=== PATIENT | male | born 1955 | race Caucasian/White ===

== ENCOUNTER 2022-12-22 09:47 | Day surgery (SDC) | payer OTHER, SELFPAY ==
--- NOTE | 2022-12-22 07:31 | W.ANESPRE ---
General Info Date of Service Date Performed: 12/22/22 Height: 6 ft 1 in Weight: 104.326 kg Body Mass Index (BMI): 30.3 Surgical Procedure: Operation Date: 12/22/22 13:40 Proposed Procedure Side Surgeon p Cataract Extraction with IOL Implant Left Vamsi Mills MD Meds Allergies and Home Medications Allergies Allergy/AdvReac Type Severity Reaction Status Date / Time terazosin AdvReac Contraindic Unverified 12/22/22 10:37 ated Home Medication Medication Instructions Recorded acyclovir 800 mg tablet 800 mg PO TID 12/20/22 amoxicillin 500 mg tablet 2,000 mg PO DIRECTED 12/20/22 atorvastatin 40 mg tablet 40 mg PO DAILY 12/20/22 cholecalciferol (vitamin D3) 25 1,000 unit PO DAILY 12/20/22 mcg (1,000 unit) capsule (Vitamin D3) dextran 70-hypromellose eye drops 1 drp ophthalmic (eye) QID 12/20/22 in a dropperette (Artificial Tears (PF) drops in a dropperette) gabapentin 300 mg tablet 300 mg PO BID 12/20/22 lisinopril 5 mg tablet 5 mg PO DAILY 12/20/22 sumatriptan succinate 50 mg tablet 50 mg PO DIRECTED 12/20/22 warfarin 5 mg tablet 5 mg PO DAILY 12/20/22 Current Visit Medications: Current Medications Generic Name Dose Route Start Last Admin Trade Name Freq PRN Reason Stop Dose Admin Acetaminophen 1,000 mg 12/22/22 06:00 Acetaminophen 500 Mg Tab PO 01/21/23 05:59 Q4H PRN PRN Balanced Salt Solution 500 ml 12/22/22 06:00 Balanced Salt Soln.-Plus 500 Ml Bag OP 01/21/23 05:59 DIRECTED CRISTOFER Miscellaneous Medication 0 ml 12/22/22 06:00 Prednisolone 1%, Moxifloxacin 0.5%, Nepafenac 0.1% 5ml Btl OS 01/21/23 05:59 DIRECTED CRISTOFER Miscellaneous Medication 0 ml 12/22/22 06:00 Tropicam./Phenyleph. (1/2.5%) 5 Ml Btl OS 01/21/23 05:59 DIRECTED CRISTOFER Tetracaine HCl 0 ml 12/22/22 06:00 Tetracaine 0.5% 4 Ml Btl OS 01/21/23 05:59 DIRECTED [facility] Active Problems Active Problems: Problem Status Onset Code Cortical age-related cataract, left eye H25.012 Posterior subcapsular age-related cataract of left eye H25.042 Nuclear age-related cataract, left eye H25.12 Medical History Medical History (Updated 12/21/22 @ 19:19 by Vamsi Mills MD) Afib CHF (congestive heart failure) Per pt. states CHF and Afib no longer an issues since he his mitral valves replaced 2000 Diabetes mellitus DVT (deep venous thrombosis) Factor 5 Leiden mutation, heterozygous HTN (hypertension) Mitral valve regurgitation Proteinuria Pulmonary HTN Surgical History Surgical History (Updated 12/20/22 @ 11:54 by Waylon Grant) S/P MVR (mitral valve replacement) 2000 Tobacco Smoking/Tobacco Use Status: Never Alcohol Alcohol Intake: current Alcohol intake frequency: a few times a month Substance Use Substance use: Never Substance use type: does not use Vital Signs and Lab Results Vital Signs Most Recent Vital Signs in EMR: Temp Pulse Resp BP Pulse Ox 36.7 C 66 18 166/117 H 97 12/22/22 10:30 12/22/22 10:30 12/22/22 10:30 12/22/22 10:30 12/22/22 10:30 Lab Results Blood Type / Crossmatch: No Data to Display Complete Blood Count: No Data to Display Complete Metabolic Panel: No Data to Display Liver Function Panel: No Data to Display Coagulation Panel: No Data to Display Cardiac Panel: No Data to Display Arterial Blood Gas: No Data to Display Venous Blood Gas: No Data to Display Pancreas Panel: No Data to Display Thyroid Panel: No Data to Display Infectious Disease: No Data to Display Blood Cultures: No Data to Display Toxicology Panel: No Data to Display Anesthesia Assessment and Plan Anesthesia History Personal History: No History of Anesthesia Complications Family History: No Family History of Anesthesia Complications Exercise Tolerance Exercise Tolerance: Metabolic Equivalents>4 Cardiac & Pulmonary Exam Cardiac Exam: Normal S1/S2 Heart Sounds Pulmonary Exam: Clear Bilateral Breath Sounds Implantable Cardiac Device Does patient have a Pacemaker or an ICD?: No Airway Exam Known Difficult Airway: No Mallampati Class: 3 Mouth Opening: Normal (> 3cm) Thyromental Distance: Greater than 3 cm Neck Range of Motion: Full ROM Neck Circumference: Normal Teeth Condition: Normal Dentition ASA Classification ASA Score: ASA 3 Emergency Case?: No NPO Status NPO Status: NPO Clears >2 hours, Solids >8 hours Anesthesia Plan Resuscitation Status: Full Code Anesthesia Technique: MAC Anesthesia Airway Planned: Natural Airway Monitors Used: Standard Monitors Preoperative Comments:: 67 yo male for cataract removal. Discussed sedation vs no sedation, would like to proceed without MKO. Discussed that an IV can be placed and that we can provide him with sedation if needed. Sig PMHx: afib (warfarin), chf, MVR (2000), factor V leiden (hetero), never smoker, occ EtOH.
[2022-12-22 10:30] VITALS: BP 166/117; PULSE 66; RESP 18; TEMP 36.7; O2SAT 97
[2022-12-22] MEDS: Tropicam./Phenyleph. (1/2.5%) 5 ML BTL OS ×3 (10:42→10:52)
[2022-12-22 10:46] VITALS: BMI 30.3
[2022-12-22] MEDS: Tetracaine 0.5% 4 ML BTL OS (11:48)
[2022-12-22] MEDS: Povidone-Iodine Ophth 30 ML BTL (11:48)
[2022-12-22] MEDS: Balanced Salt Soln.-PLUS 500 ML BAG OP (11:52)
[2022-12-22] MEDS: Duovisc Viscoelastic System EACH 1 EACH (11:52)
[2022-12-22] MEDS: Phenylephrine/Lidocaine (15/10) MG/ML 1 ML VIAL (11:52)
[2022-12-22] MEDS: Lidocaine 1% Pres-Free 5 ML VIAL (11:54)
[2022-12-22] MEDS: Trypan Blue 0.06% 0.5 ML SYR (11:56)
[2022-12-22 12:16] VITALS: BP 153/102; PULSE 57; RESP 18; TEMP 36.3; O2SAT 99
--- NOTE | 2022-12-22 12:16 | W.PM.DSUDISC ---
Date of service: 12/22/22 Time of Service: 12:17 Discharge Plan Disposition Patient Disposition: Home Discharge Details Attending Provider: Vamsi Mills Home Meds and New Rx's Prescriptions: No Action atorvastatin 40 mg Tablet 40 mg PO DAILY sumatriptan succinate 50 mg Tablet 50 mg PO DIRECTED amoxicillin 500 mg Tablet 2,000 mg PO DIRECTED Rx Instructions: BEFORE DENTAL CLEANING PROCEDURES DIRECTED acyclovir 800 mg Tablet 800 mg PO TID warfarin 5 mg Tablet 5 mg PO DAILY lisinopril 5 mg Tablet 5 mg PO DAILY cholecalciferol (vitamin D3) [Vitamin D3] 25 mcg (1,000 unit) Capsule 1,000 unit PO DAILY Artificial Tears (PF) Dropperette 1 drp ophthalmic (eye) QID gabapentin 300 mg Tablet 300 mg PO BID Discharge Instructions Stand Alone Forms: Post-op Topical Cataract, Niya Ganey (DSU) Discharge Orders Discharge Orders: Discharge Order (Routine); Ordered 12/22/22 Ordered By: Vamsi Mills DS: Diagnosis Discharge Diagnosis (1) Cortical age-related cataract, left eye: Status: Resolved (2) Posterior subcapsular age-related cataract of left eye: Status: Resolved (3) Nuclear age-related cataract, left eye: Status: Resolved
--- NOTE | 2022-12-22 12:17 | W.PM.OP ---
Date of service: 12/22/22 Time of Service: 12:17 Operative Note Operative Note DATE OF PROCEDURE: 12/22/22 PRE-OP DIAGNOSIS: Nuclear/cortical/posterior subcapsular cataract, left eye POST-OP DIAGNOSIS: same PROCEDURE: Cataract extraction using phacoemulsification with intraocular lens implant, left eye SURGEON: Vamsi Mills ANESTHESIA TYPE: Local By Surgeon and MAC Refer to Anesthesia Record PATHOLOGY: none sent COMPLICATIONS: None Patient was transported to: same day Patient's condition: stable Implants: Rambo and Rambo Tecnis Eyhance [id number] Indications: Progressive decreased vision due to cataract, left eye Procedure Description: CATARACT SURGERY OPERATIVE REPORT PREOPERATIVE DIAGNOSIS: 1. Nuclear/cortical/posterior subcapsular cataract, left eye POSTOPERATIVE DIAGNOSIS: Same OPERATION: 1. Cataract extraction using phacoemulsification with posterior chamber intraocular lens implant, left eye. IOL: IOL Awake Overnight Monitor/Model: Rambo & Rambo Tecnis Eyhance DIB00 IOL Power: + 12.0 diopters IOL Serial Number: [id number] Optic Diameter: 6.0 mm Haptic/Overall Diameter: 13.0 mm PHACO INFO: Eric Shnergleurion Vision System with OZil and Active Fluidics Cumulative Dispersed Energy (CDE): 8.34 seconds SURGEON: Vamsi Mills MD, BRENNON ANESTHESIA: Monitored A [facility] (MAC), with local sub-tenon's anesthetic infiltration COMPLICATIONS: None SPECIMENS: None INDICATIONS FOR PROCEDURE: The patient is a 67-year-old male with history of diminished visual acuity in his left eye secondary to the development of significant nuclear/cortical/posterior subcapsular cataract. He has a history of myopia, but does not wish to remain myopic postoperatively. The option of cataract surgery was offered to the patient and he wished to proceed. See office notes for detailed information. PROCEDURE: The correct surgical eye was identified and marked as the left eye and the pupil was dilated in the preoperative area using mydriatics and cycloplegics. The dilated pupil size was 8.0 mm. The patient elected to proceed without oral sedation. The patient was brought to the operating room where cardiopulmonary monitoring was instituted and surgical time-out was performed, confirming the correct operative eye and IOL power. Topical anesthesia was administered and ophthalmic povidone-iodine 5% was instilled into the conjunctival fornices. The toni-ocular area was prepped with Betadine 10% solution and draped in the usual sterile fashion for intraocular surgery, including an aperture drape. A Tegaderm transparent film dressing was cut in half and used to cover the lashes and lid margins. Care was taken to sequester the lashes and lid margins under the Tegaderm dressing. A lid speculum was placed between the lids of the operative eye and the Eric LuxOR Revalia operating microscope was maneuvered into position. Ejnny scissors were then used to make a conjunctival buttonhole approximately 6mm posterior to the limbus in the inferonasal quadrant. Blunt dissection was carried out to expose bare sclera, and a blunt-tipped sub-tenon?s anesthesia cannula was introduced and passed posteriorly along the globe where non-preserved plain lidocaine was injected into posterior sub-Tenon?s space. A sideport knife was used to make a paracentesis port. VisionBlue was injected into the anterior chamber and allowed to sit for 20 seconds. Intraocular phenylephrine/lidocaine was injected into the anterior chamber.. The anterior chamber was filled with viscoelastic. A keratome knife was used to construct a 2-plane near-clear corneal tunnel extending 2.0mm into clear cornea. A flap was raised on the anterior capsule and capsulorhexis forceps were used to complete a continuous curvilinear capsulorhexis of 5.5 mm. Balanced salt solution was then used to perform cortical cleaving hydrodissection and nuclear hydrodelineation until the lens could be freely rotated within the capsular bag. The lens nucleus was then disassembled and removed within the capsular bag and iris plane using phacoemulsification. Residual cortical material was removed using the irrigation/aspiration handpiece. The posterior capsule was carefully polished to remove as much residual lens epithelial cells as safely possible. The capsular bag was then inflated and the anterior chamber deepened with viscoelastic. The lens implant described above was inserted into the capsular bag using the Rambo and Rambo Simplicity pre-loaded injector. A Kuglen hook was used to dial the IOL into position. Residual viscoelastic was then removed first from posterior to the IOL, then from the anterior chamber using the I/A handpiece. The lens implant was noted to center nicely within the capsular bag. The incisions were stromally hydrated, and the anterior chamber was reformed using BSS. Then 0.5cc of moxifloxacin 1.0mg/ml were injected into the capsular bag and anterior chamber. The incisions were checked with a Weck spear and found to be secure. Several drops of ophthalmic povidone-iodine 5% were then applied to the eye followed by two drops of Imprimis combination prednisolone/moxifloxacin/nepafenac solution. The drapes were removed and a clear plastic protective eye shield was placed over the eye. The patient was then returned to Same Day Surgery in stable condition.
--- NOTE | 2022-12-22 12:39 | W.ANESPOSTOP ---
Postoperative Evaluation Date, Time and Location Date Performed: 12/22/22 Time Performed: 12:17 Patient Location: Day Surgery Unit Vital Signs Most Recent Imported Vital Signs: Most Recent Vital Signs Temp Pulse Resp BP Pulse Ox 36.3 C L 57 L 18 153/102 H 99 12/22/22 12:16 12/22/22 12:16 12/22/22 12:16 12/22/22 12:16 12/22/22 12:16 Pain Score Most Recent Pain Score: Most Recent Pain Score Pain Level 0 12/22/22 12:16 Assessment Mental Status: Awake (Alert & Oriented to Patient Baseline) Airway and Respiratory Function: Patent airway with normal (patient baseline) respiratory exam Cardiovascular Function: Hemodynamically Stable Hydration Status: Adequately Hydrated Nausea & Vomiting: No Nausea or Vomiting Pain: Pt. Denies Any Pain Peripheral Nerve Block: Patient did not receive a nerve block
== END 2022-12-22 13:12 | disposition home or self-care (01) ==
PROVIDERS: Visit Provider Ophthalmology
PROC: (CPT 66984; principal; 2022-12-22 13:30)
DX: H25.012 Cortical age-related cataract, left eye (principal); H25.042 Posterior subcapsular polar age-related cataract, left eye; H25.12 Age-related nuclear cataract, left eye; I10 Essential (primary) hypertension
CPT/HCPCS: 66984; V2632

== ENCOUNTER 2023-01-05 11:07 | Day surgery (SDC) | payer OTHER, SELFPAY ==
[2023-01-05 11:18] VITALS: BP 134/102; PULSE 69; RESP 18; TEMP 36.5; O2SAT 98
[2023-01-05] MEDS: Tropicam./Phenyleph. (1/2.5%) 5 ML BTL OD ×3 (11:27→11:45)
--- NOTE | 2023-01-05 11:47 | W.ANESPRE ---
General Info Date of Service Date Performed: 01/05/23 Height: 6 ft 1 in Weight: 103.3 kg Body Mass Index (BMI): 30.0 Surgical Procedure: Operation Date: 01/05/23 14:25 Proposed Procedure Side Surgeon p Cataract Extraction with IOL Implant Right Vamsi Mills MD Meds Allergies and Home Medications Allergies Allergy/AdvReac Type Severity Reaction Status Date / Time terazosin AdvReac Contraindic Unverified 01/05/23 11:33 ated Home Medication Medication Instructions Recorded acyclovir 800 mg tablet 800 mg PO TID 12/20/22 amoxicillin 500 mg tablet 2,000 mg PO DIRECTED 12/20/22 atorvastatin 40 mg tablet 40 mg PO HS 12/20/22 cholecalciferol (vitamin D3) 25 1,000 unit PO DAILY 12/20/22 mcg (1,000 unit) capsule (Vitamin D3) dextran 70-hypromellose eye drops 1 drp ophthalmic (eye) QID 12/20/22 in a dropperette (Artificial Tears (PF) drops in a dropperette) gabapentin 300 mg tablet 300 mg PO BID 12/20/22 lisinopril 5 mg tablet 5 mg PO HS 12/20/22 sumatriptan succinate 50 mg tablet 50 mg PO DIRECTED 12/20/22 warfarin 5 mg tablet 5 mg PO HS 12/20/22 coenzyme Q10 100 mg capsule 100 mg PO DAILY 01/05/23 Current Visit Medications: Current Medications Generic Name Dose Route Start Last Admin Trade Name Freq PRN Reason Stop Dose Admin Acetaminophen 1,000 mg 01/05/23 06:00 Acetaminophen 500 Mg Tab PO 02/04/23 05:59 Q4H PRN PRN Balanced Salt Solution 500 ml 01/05/23 06:00 Balanced Salt Soln.-Plus 500 Ml Bag OP 02/04/23 05:59 DIRECTED CRISTOFER Miscellaneous Medication 0 ml 01/05/23 06:00 Prednisolone 1%, Moxifloxacin 0.5%, Nepafenac 0.1% 5ml Btl OD 02/04/23 05:59 DIRECTED CRISTOFER Miscellaneous Medication 0 ml 01/05/23 06:00 01/05/23 11:45 Tropicam./Phenyleph. (1/2.5%) 5 Ml Btl OD 02/04/23 05:59 1 drp DIRECTED CRISTOFER Administration Tetracaine HCl 0 ml 01/05/23 06:00 Tetracaine 0.5% 4 Ml Btl OD 02/04/23 05:59 DIRECTED CRISTOFER PFSH Active Problems Active Problems: Problem Status Onset Code Nuclear age-related cataract, left eye H25.12 Posterior subcapsular age-related cataract of left eye H25.042 Cortical age-related cataract, left eye H25.012 Nuclear age-related cataract, right eye H25.11 Cortical age-related cataract, right eye H25.011 Posterior subcapsular age-related cataract, right eye H25.041 Medical History Medical History (Updated 01/05/23 @ 11:36 by Letha Negrete RN) Afib CHF (congestive heart failure) Per pt. states CHF and Afib no longer an issues since he his mitral valves replaced 2000 Diabetes mellitus 01/05/23 pt denies he has diabetes mellitus DVT (deep venous thrombosis) Factor 5 Leiden mutation, heterozygous HTN (hypertension) Hx of hiatal hernia Mitral valve regurgitation Proteinuria Pulmonary HTN Surgical History Surgical History S/P MVR (mitral valve replacement) 2000 Tobacco Smoking/Tobacco Use Status: Never Alcohol Alcohol Intake: current Alcohol intake frequency: a few times a month Substance Use Substance use: Never Substance use type: does not use Vital Signs and Lab Results Vital Signs Most Recent Vital Signs in EMR: Most Recent Vital Signs Temp Pulse Resp BP Pulse Ox 36.5 C 69 18 134/102 H 98 01/05/23 11:18 01/05/23 11:18 01/05/23 11:18 01/05/23 11:18 01/05/23 11:18 Lab Results Blood Type / Crossmatch: No Data to Display Complete Blood Count: No Data to Display Complete Metabolic Panel: No Data to Display Liver Function Panel: No Data to Display Coagulation Panel: No Data to Display Cardiac Panel: No Data to Display Arterial Blood Gas: No Data to Display Venous Blood Gas: No Data to Display Pancreas Panel: No Data to Display Thyroid Panel: No Data to Display Infectious Disease: No Data to Display Blood Cultures: No Data to Display Toxicology Panel: No Data to Display Anesthesia Assessment and Plan Anesthesia History Personal History: No History of Anesthesia Complications Family History: No Family History of Anesthesia Complications Exercise Tolerance Exercise Tolerance: Metabolic Equivalents>4 Cardiac & Pulmonary Exam Cardiac Exam: Normal S1/S2 Heart Sounds Pulmonary Exam: Clear Bilateral Breath Sounds Implantable Cardiac Device Does patient have a Pacemaker or an ICD?: No Airway Exam Known Difficult Airway: No Mallampati Class: 3 Mouth Opening: Normal (> 3cm) Thyromental Distance: Greater than 3 cm Neck Range of Motion: Full ROM Neck Circumference: Normal Teeth Condition: Normal Dentition ASA Classification ASA Score: ASA 2 Emergency Case?: No NPO Status NPO Status: NPO Clears >2 hours, Solids >8 hours Anesthesia Plan Resuscitation Status: Full Code Anesthesia Technique: MAC Anesthesia Airway Planned: Natural Airway Monitors Used: Standard Monitors
[2023-01-05] MEDS: Balanced Salt Soln.-PLUS 500 ML BAG OP (12:10)
[2023-01-05] MEDS: Tetracaine 0.5% 4 ML BTL OD (12:11)
[2023-01-05] MEDS: Duovisc Viscoelastic System EACH 1 EACH (12:12)
[2023-01-05] MEDS: Lidocaine 1% Pres-Free 5 ML VIAL (12:12)
[2023-01-05] MEDS: Povidone-Iodine Ophth 30 ML BTL (12:14)
[2023-01-05] MEDS: Phenylephrine/Lidocaine (15/10) MG/ML 1 ML VIAL (12:14)
[2023-01-05] MEDS: Trypan Blue 0.06% 0.5 ML SYR (12:15)
--- NOTE | 2023-01-05 12:34 | W.PM.DSUDISC ---
Date of service: 01/05/23 Time of Service: 12:34 Discharge Plan Disposition Patient Disposition: Home Discharge Details Attending Provider: Vamsi Mills Home Meds and New Rx's Prescriptions: No Action atorvastatin 40 mg Tablet 40 mg PO HS sumatriptan succinate 50 mg Tablet 50 mg PO DIRECTED amoxicillin 500 mg Tablet 2,000 mg PO DIRECTED Rx Instructions: BEFORE DENTAL CLEANING PROCEDURES DIRECTED acyclovir 800 mg Tablet 800 mg PO TID warfarin 5 mg Tablet 5 mg PO HS lisinopril 5 mg Tablet 5 mg PO HS cholecalciferol (vitamin D3) [Vitamin D3] 25 mcg (1,000 unit) Capsule 1,000 unit PO DAILY Artificial Tears (PF) Dropperette 1 drp ophthalmic (eye) QID gabapentin 300 mg Tablet 300 mg PO BID coenzyme Q10 100 mg Capsule 100 mg PO DAILY Discharge Instructions Stand Alone Forms: Post-op Topical Cataract, Niya Fontanezey (DSU) Discharge Orders Discharge Orders: Discharge Order (Routine); Ordered 01/05/23 Ordered By: Vamsi Mills DS: Diagnosis Discharge Diagnosis (1) Nuclear age-related cataract, right eye: Status: Resolved (2) Cortical age-related cataract, right eye: Status: Resolved (3) Posterior subcapsular age-related cataract, right eye: Status: Resolved
[2023-01-05 12:36] VITALS: BP 150/99; PULSE 63; RESP 20; TEMP 36.8; O2SAT 97
--- NOTE | 2023-01-05 12:36 | ROE_ITS ---
Date of service: 01/05/23 Time of Service: 12:36 Operative Note Operative Note DATE OF PROCEDURE: 01/05/23 PRE-OP DIAGNOSIS: Nuclear/cortical/posterior subcapsular cataract, right eye POST-OP DIAGNOSIS: same PROCEDURE: Cataract extraction using phacoemulsification with intraocular lens implant, right eye SURGEON: Vamsi Mills ANESTHESIA TYPE: Local By Surgeon and MAC Refer to Anesthesia Record ESTIMATED BLOOD LOSS: 0 PATHOLOGY: none sent COMPLICATIONS: None Patient was transported to: same day Patient's condition: stable Implants: Rambo & Rambo Tecnis Eyhance DIB00 Indications: Progressive visual loss due to cataract, right eye Procedure Description: CATARACT SURGERY OPERATIVE REPORT PREOPERATIVE DIAGNOSIS: 1. Nuclear/cortical/posterior subcapsular cataract, left eye POSTOPERATIVE DIAGNOSIS: Same OPERATION: 1. Cataract extraction using phacoemulsification with posterior chamber intraocular lens implant, right eye. IOL: IOL Burglar Alarm Installer/Model: Rambo & Rambo Tecnis Eyhance DIB00 IOL Power: + 11.5 diopters IOL Serial Number: [id number] Optic Diameter: 6.0mm Haptic/Overall Diameter: 13.0mm PHACO INFO: Eric AmigoCATurion Vision System with OZil and Active Fluidics Cumulative Dispersed Energy (CDE): 9.40 seconds SURGEON: Vamsi Mills MD, BRENNON ANESTHESIA: Monitored Anesthesia Care (MAC), with local sub-tenon's anesthetic infiltration COMPLICATIONS: None SPECIMENS: None INDICATIONS FOR PROCEDURE: The patient is a 67-year-old male with history of diminished visual acuity in both eyes secondary to the development of significant bilateral nuclear/cortical/posterior subcapsular cataract. He has already undergone cataract surgery in the left eye and is doing well postoperatively. He now presents for cataract surgery in the right eye. See office notes for detailed information. PROCEDURE: The correct surgical eye was identified and marked as the right eye and the pupil was dilated in the preoperative area using mydriatics and cycloplegics. The dilated pupil size was 6.5 mm. The patient elected to proceed without oral sedation. The patient was brought to the operating room where cardiopulmonary monitoring was instituted and surgical time-out was performed, confirming the correct operative eye and IOL power. Topical anesthesia was administered and ophthalmic povidone-iodine 5% was instilled into the conjunctival fornices. The toni-ocular area was prepped with Betadine 10% solution and draped in the usual sterile fashion for intraocular surgery, including an aperture drape. A Tegaderm transparent film dressing was cut in half and used to cover the lashes and lid margins. Care was taken to sequester the lashes and lid margins under the Tegaderm dressing. A lid speculum was placed between the lids of the operative eye and the Eric LuxOR Revalia operating microscope was maneuvered into position. Jenny scissors were then used to make a conjunctival buttonhole approximately 6mm posterior to the limbus in the inferonasal quadrant. Blunt dissection was carried out to expose bare sclera, and a blunt-tipped sub-tenon?s anesthesia cannula was introduced and passed posteriorly along the globe where non- preserved plain lidocaine was injected into posterior sub-Tenon?s space. A sideport knife was used to make a paracentesis port. VisionBlue was injected into the anterior chamber and allowed to sit for 20 seconds. Intraocular phenylephrine/lidocaine was injected into the anterior chamber. The anterior chamber was filled with viscoelastic. A keratome knife was used to construct a 2-plane clear corneal tunnel extending 2.0mm into clear cornea. A flap was raised on the anterior capsule and capsulorhexis forceps were used to complete a continuous curvilinear capsulorhexis of 5.0 mm. Balanced salt solution was then used to perform cortical cleaving hydrodissection and nuclear hydrodelineation until the lens could be freely rotated within the capsular bag. The lens nucleus was then disassembled and removed within the capsular bag and iris plane using phacoemulsification. Residual cortical material was removed using the I/A handpiece. The posterior capsule was carefully polished to remove as much residual lens epithelial cells as safely possible. The capsular bag was then inflated and the anterior chamber deepened with cohesive viscoelastic. The lens implant described above was inserted into the capsular bag using the Rambo and Evens Simplicity pre- loaded injector. A Kuglen hook was used to dial the IOL into position. Residual viscoelastic was then removed first from posterior to the IOL, then from the anterior chamber using the I/A handpiece. The lens implant was noted to center nicely within the capsular bag. The incisions were stromally hydrated, and the anterior chamber was reformed using BSS. Then 0.5cc of moxifloxacin 1.0mg/ml were injected into the capsular bag and anterior chamber. The incisions were checked with a Weck spear and found to be secure. Several drops of ophthalmic povidone-iodine 5% were then applied to the eye followed by two drops of Imprimis combination prednisolone/moxifloxacin/nepafenac solution. The drapes were removed and a clear plastic protective eye shield was placed over th e eye. The patient was then returned to Same Day Surgery in stable condition.
--- NOTE | 2023-01-05 12:46 | W.ANESPOSTOP ---
Postoperative Evaluation Date, Time and Location Date Performed: 01/05/23 Time Performed: 12:46 Patient Location: Day Surgery Unit Vital Signs Most Recent Imported Vital Signs: Most Recent Vital Signs Temp Pulse Resp BP Pulse Ox 36.8 C 63 20 150/99 H 97 01/05/23 12:36 01/05/23 12:36 01/05/23 12:36 01/05/23 12:36 01/05/23 12:36 Pain Score Most Recent Pain Score: Most Recent Pain Score Pain Level 0 01/05/23 12:36 Assessment Mental Status: Awake (Alert & Oriented to Patient Baseline) Airway and Respiratory Function: Patent airway with normal (patient baseline) respiratory exam Cardiovascular Function: Hemodynamically Stable Hydration Status: Adequately Hydrated Nausea & Vomiting: No Nausea or Vomiting Pain: Pt. Denies Any Pain Peripheral Nerve Block: Patient did not receive a nerve block
== END 2023-01-05 13:23 | disposition home or self-care (01) ==
LOC: SUR 11:07
PROVIDERS: Visit Provider Ophthalmology
PROC: (CPT 66984; principal; 2023-01-05 14:15)
DX: H25.11 Age-related nuclear cataract, right eye (principal); H25.011 Cortical age-related cataract, right eye; H25.041 Posterior subcapsular polar age-related cataract, right eye; I10 Essential (primary) hypertension; Z98.42 Cataract extraction status, left eye
CPT/HCPCS: 66984; V2632